=== PATIENT | female | born 1965 | race Caucasian/White ===

== ENCOUNTER 2020-02-13 08:46 | Outpatient (CLI) | payer MEDICARE, SELFPAY ==
[2020-02-13 09:00] LABS: Hemoglobin 12.9 g/dL (12.0-15.0); Mean Corpuscular HGB Conc 31.5 g/dL (32.0-36.0); Mean Corpuscular Hemoglobin 29.1 pg (27.0-31.0); Mean Corpuscular Volume 92.3 fL (78.0-102.0); Mean Platelet Volume 10.5 fl (9.2-11.8); Platelet Count Result 220 K/mm3 (150-420); Red Blood Count 4.44 M/mm3 (4.20-5.40); Red Cell Distribution Width 12.6 % (11.6-14.4); White Blood Count 5.2 K/mm3 (4.8-10.8)
[2020-02-13 10:58] LABS: Alanine Aminotransferase 20 U/L (14-59); Alkaline Phosphatase 93 U/L (46-116); Anion Gap 8 mmol/L (8-16); Aspartate Amino Transferase 12 U/L (15-37); Bilirubin,Total 0.6 mg/dL (0.00-1.00); Blood Urea Nitrogen 11 mg/dL (7-18); Calcium 9.3 mg/dL (8.5-10.1); Carbon Dioxide 27 mmol/L (21-32); Chloride 106 mmol/L (98-108); Estimated Glomerular Filt Rate > 60; Glucose 82 mg/dL (70-99); Osmolality Calculated 290 mOsm/kg (285-295); Potassium 4.3 mmol/L (3.5-5.1); Sodium 141 mmol/L (136-145); Thyroid Stimulating Hormone 1.48 uIU/mL (0.36-3.74); Total Protein 6.9 g/dL (6.4-8.2)
[2020-02-15 14:47] LABS: Lithium 0.55 mmol/L (0.60-1.20)
== END 2020-02-13 08:47 | disposition home or self-care (01) ==
LOC: CHSLAB 08:50
PROVIDERS: PCP Family Medicine
DX: F31.81 Bipolar II disorder (principal)
CPT/HCPCS: 36415; 80053; 80178; 84443; 85027

== ENCOUNTER 2020-07-02 12:41 | Outpatient (CLI) | payer MEDICARE, SELFPAY ==
--- NOTE | ~2020-07-02 | MM_ITS ---
EXAMINATION: MM screening [facility] BI w michael HISTORY: Screening mammogram TECHNIQUE: Craniocaudal and mediolateral oblique 3-D tomosynthesis images were obtained and synthetic 2-D images were generated. CAD analysis was submitted and interpreted. COMPARISON: No prior mammogram is available for comparison at this institution. BREAST PARENCHYMAL COMPOSITION: There are scattered areas of fibroglandular density. FINDINGS: RIGHT BREAST: There is a possible mass in the upper outer quadrant of the right breast 10 cm from the nipple. LEFT BREAST: There is no evidence of suspicious mass, calcification, or architectural distortion to s uggest malignancy. IMPRESSION: 1. Possible right breast mass 2. Additional mammographic views and possible breast ultrasound are recommended. BI-RADS Category 0: Incomplete: Needs additional imaging evaluation. Reviewed, dictated and finalized at location A. IMPRESSION: 1. Possible right breast mass 2. Additional mammographic views and possible breast ultrasound are recommended . BI-RADS Category 0: Incomplete: Needs additional imaging evaluation.
== END 2020-07-02 12:42 | disposition home or self-care (01) ==
LOC: CHSIMG 12:42
PROVIDERS: PCP Family Medicine; Visit Provider Family Medicine
DX: Z12.31 Encounter for screening mammogram for malignant neoplasm of breast (principal)
CPT/HCPCS: 77063; 77067

== ENCOUNTER 2020-07-03 12:17 | Outpatient (CLI) | payer MEDICARE, SELFPAY ==
--- NOTE | 2020-07-03 12:22 | ECHO_ITS ---
Patient Info Name: Stefanie Sanderson Age: 55 years : 1965 Gender: Female Ht: 65 in Wt: 185 lbs BSA: 1.99 m2 HR: 70 bpm BP: 145 / 90 mmHg Heart Rhythm: Sinus Rhythm Technical Quality: Good Exam Date: 07/03/2020 12:07 PM Exam Location: [facility] Patient Status: Outpatient Admit Date: 07/03/2020 Staff Ordering Physician: Juvencio Magana MD Logistics Specialist: Misa Sargent RDCS Attending Provider: Juvencio Magana MD Referring Physician: Chino HENRY; Exam Type: CA echo doppler color flow Study Info Indications I11.0 - Hypertensive heart disease with heart failure I10 - Essential (primary) hypertension Complete two-dimensional, color flow and Doppler transthoracic echocardiogram is performed. Strain analysis performed. History/Risk Factors Hypertension: Yes Dyslipidemia: No Congenital Heart Disease (CHD): No Peripheral Arterial Disease (PAD): No Myocardial Infarction (OR): No Chronic Lung Disease: No Obesity: Yes Renal Disease: No Coronary Artery Disease (CAD) No Congestive Heart Failure (CHF): No Cardiomyopathy/LV Systolic Dysfunction: No Diabetes Mellitus: No COPD: No Tobacco Use: Never Cerebrovascular Disease: No Family History: Coronary Artery Disease Deep Vein Thrombosis (DVT): None Dialysis: None Frailty Scale (CSHA): 2: Well Cardiac Arrest: No Summary 1. Complete two-dimensional, color flow and Doppler transthoracic echocardiogram is performed. 2. Left ventricular chamber dimension is normal. 3. Left ventricular systolic function is normal, estimated at 60-65%. 4. There is mildly increased left ventricular wall thickness. 5. The left ventricular diastolic function is grade I diastolic dysfunction. 6. E/e' 13 is mildly elevated. 7. Left atrial chamber dimension is mildly enlarged. 8. There is trace mitral valve regurgitation. 9. There is trace tricuspid valve regurgitation. 10. Mild pulmonary hypertension, estimated pulmonary arterial systolic pressure is 43 mmHg. 11. There is trace pulmonic regurgitation. Left Ventricle E/e' 13 is mildly elevated. Left ventricular chamber dimension is normal. Left ventricular systolic function is normal, estimated at 60-65%. There is mildly increased left ventricular wall thickness. The left ventricular diastolic function is grade I diastolic dysfunction. Right Ventricle Right ventricular chamber dimension is normal. Right ventricular systolic function is normal. Left Atria Left atrial chamber dimension is mildly enlarged. Right Atria Right atrial chamber dimension is normal. Aortic Valve The aortic valve is trileaflet. There is no aortic valve stenosis. There is no aortic valve regurgitation. Pulmonic Valve There is trace pulmonic regurgitation. Mitral Valve There is no mitral valve stenosis. There is trace mitral valve regurgitation. Tricuspid Valve There is trace tricuspid valve regurgitation. Mild pulmonary hypertension, estimated pulmonary arterial systolic pressure is 43 mmHg. Pericardium/Pleural There is no pericardial effusion. Inferior Vena Cava Normal inferior vena cava with >50% collapse upon inspiration consistent with normal right atrial pressure, 5 mmHg. Aorta The aortic root size at the sinus of Valsalva is normal. Left Ventricular Outflow Tract Name
== END 2020-07-03 12:18 | disposition home or self-care (01) ==
PROVIDERS: PCP Family Medicine; Visit Provider Family Medicine
DX: I51.7 Cardiomegaly (principal); I10 Essential (primary) hypertension
CPT/HCPCS: 93306

== ENCOUNTER 2020-07-09 09:35 | Outpatient (CLI) | payer MEDICARE, SELFPAY ==
--- NOTE | ~2020-07-09 | MMUS_ITS ---
EXAMINATION: MM diagnostic mammo unilat RT, US breast RT limited HISTORY: Possible right breast mass on screening mammogram TECHNIQUE: Additional 3-D tomosynthesis images of the right breast were performed and synthetic 2-D i mages were generated. CAD analysis was submitted and interpreted. High resolution limited right breas t ultrasound was performed. COMPARISON: 07/02/2020 FINDINGS: MAMMOGRAPHIC FINDINGS: A subtle focal asymmetry persists in the upper outer quadrant of the breast with spot compression at the 10:00 location 10 cm from the nipple. No suspicious calcification or architectural distortion are identified. ULTRASOUND: There is no evidence of focal abnormal solid or cystic mass in the vicinity of the mammographic findi ng in question. IMPRESSION: 1. Focal asymmetry of the right breast without definite sonographic correlate. 2. Recommend 6 month follow-up right diagnostic mammogram and ultrasound. BI-RADS category 3, probably benign findings. Reviewed, dictated and finalized at location A. IMPRESSION: 1. Focal asymmetry of the right breast without definite sonographic correlate. 2. Recommend 6 month follow-up right diagnostic mammogram and ultrasound. BI-RADS category 3, probably benign findings.
== END 2020-07-09 09:36 | disposition home or self-care (01) ==
LOC: CHSIMG 09:37
PROVIDERS: PCP Family Medicine; Visit Provider Family Medicine
DX: R92.8 Other abnormal and inconclusive findings on diagnostic imaging of breast (principal)
CPT/HCPCS: 76642; 77065

== ENCOUNTER 2020-12-31 09:32 | Outpatient (CLI) | payer MEDICARE, SELFPAY ==
--- NOTE | ~2020-12-31 | MMUS_ITS ---
EXAMINATION: MM diagnostic nolvia RT w michael, US breast RT limited HISTORY: Focal mammographic asymmetry of right breast TECHNIQUE: ML, MLO, craniocaudal full field and spot 3-D tomosynthesis images of right breast were pe rformed and synthetic 2-D images were generated. CAD analysis was submitted and interpreted. High res olution upper outer quadrant right breast ultrasound was performed. COMPARISON: 07/09/2020 diagnostic right mammogram and limited right breast ultrasound 07/02/2020 bilateral digital screening mammogram BREAST PARENCHYMAL COMPOSITION: There are scattered areas of fibroglandular density. FINDINGS: MAMMOGRAPHIC FINDINGS: No suspicious mass, architectural distortion, malignant calcification, skin thickening or retraction of the right breast is evident. ULTRASOUND: A 2.8 mm cyst is noted at 12:00 4 cm from the nipple. A benign appearing 4 mm lymph node is noted at 9:00 11 cm from the nipple. No suspicious mass or shadowing is evident. IMPRESSION: 1. No mammographic evidence for likely 2. Routine annual mammographic screening is recommended BI-RADS Category 2: Benign finding(s). Reviewed, dictated and finalized at location A. IMPRESSION: 1. No mammographic evidence for likely 2. Routine annual mammographic screening is recommended BI-RADS Category 2: Benign finding(s).
== END 2020-12-31 09:33 | disposition home or self-care (01) ==
LOC: CHSIMG 09:33
PROVIDERS: PCP Family Medicine; Visit Provider Family Medicine
DX: R92.8 Other abnormal and inconclusive findings on diagnostic imaging of breast (principal)
CPT/HCPCS: 76642; 77061; 77065; G0279

== ENCOUNTER 2022-01-29 12:12 | Outpatient (CLI) | payer MEDICARE, SELFPAY ==
--- NOTE | ~2022-01-29 | MM_ITS ---
EXAMINATION: MM screening nol[facility] BI w michael HISTORY: Screening TECHNIQUE: Craniocaudal and mediolateral oblique 3-D tomosynthesis images were obtained and synthetic 2-D images were generated. CAD analysis was submitted and interpreted. COMPARISON: Comparison to multiple prior studies sequentially, with oldest reviewed study dated 07/02. BREAST PARENCHYMAL COMPOSITION: There are scattered areas of fibroglandular density. FINDINGS: Right breast asymmetry is stable. There is no evidence of suspicious mass, calcification, o r architectural distortion to suggest malignancy in either breast. There has been no suspicious inter lupe change. IMPRESSION: 1. No mammographic evidence of malignancy. 2. Recommend routine screening mammography in one year. BI-RADS Category 1: Negative Reviewed, dictated and finalized at location D.
== END 2022-01-29 12:13 | disposition home or self-care (01) ==
LOC: CHSIMG 12:13
PROVIDERS: PCP Family Medicine; Visit Provider Family Medicine
DX: Z12.31 Encounter for screening mammogram for malignant neoplasm of breast (principal)
CPT/HCPCS: 77063; 77067

== ENCOUNTER 2023-03-10 11:54 | Outpatient (CLI) | payer MEDICARE, SELFPAY ==
--- NOTE | ~2023-03-10 | MM_ITS ---
EXAMINATION: MM screening [facility] BI w michael HISTORY: Screening mammogram TECHNIQUE: Craniocaudal and mediolateral oblique 3-D tomosynthesis images were obtained and synthetic 2-D images were generated. CAD analysis was submitted and interpreted. COMPARISON: Review of prior mammogram examinations dating back to screening mammogram of 07/02/2020 BREAST PARENCHYMAL COMPOSITION: There are scattered areas of fibroglandular density. FINDINGS: Stable mild fibroglandular asymmetry. There is no evidence of suspicious mass, calcificatio n, or architectural distortion to suggest malignancy in either breast. There has been no suspicious i nterval change. IMPRESSION: 1. No mammographic evidence of malignancy. 2. Recommend routine screening mammography in one year. BI-RADS Category 1: Negative Reviewed, dictated and finalized at location A. 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
== END 2023-03-10 11:55 | disposition home or self-care (01) ==
LOC: CHSIMG 11:56
PROVIDERS: PCP Family Medicine; Visit Provider Family Medicine
DX: Z12.31 Encounter for screening mammogram for malignant neoplasm of breast (principal)
CPT/HCPCS: 77063; 77067

== ENCOUNTER 2024-04-26 14:06 | Outpatient (CLI) | payer MEDICARE, SELFPAY ==
--- NOTE | ~2024-04-26 | MM_ITS ---
EXAMINATION: MM screening [facility] BI w michael HISTORY: Screening mammogram TECHNIQUE: Craniocaudal and mediolateral oblique 3-D tomosynthesis images were obtained and synthetic 2-D images were generated. CAD analysis was submitted and interpreted. COMPARISON: 03/10/2023, 01/29/2022, 12/31/2020 BREAST PARENCHYMAL COMPOSITION:Not Dense. There are scattered areas of fibroglandular density. FINDINGS: No suspicious mass, calcification, or architectural distortion are identified in either madeleine ast to suggest malignancy. There has been no suspicious interval change. IMPRESSION: No mammographic evidence of malignancy. Recommend routine screening mammography in one year. BI-RADS Category 1: Negative Reviewed, dictated and finalized at location . MAKER
== END 2024-04-26 14:07 | disposition home or self-care (01) ==
LOC: CHSIMG 14:09
PROVIDERS: PCP Family Medicine; Visit Provider Family Medicine
DX: Z12.31 Encounter for screening mammogram for malignant neoplasm of breast (principal)
CPT/HCPCS: 77063; 77067